=== PATIENT | female | born 1960 | race Caucasian/White ===

== ENCOUNTER 2017-03-10 15:36 | Emergency (ER) | payer OTHER ==
[2017-03-10] MEDS ORDERED: Ondansetron 4 MG/2 ML SDV IVPUSH ONE (15:46)
[2017-03-10] MEDS ORDERED: Sodium Chloride 0.9% 1,000 ML IV ONE (15:46)
[2017-03-10] MEDS ORDERED: Ketorolac 30 MG/ML SDV IVPUSH ONE (15:46)
--- NOTE | 2017-03-10 15:58 | EDM.PDOC ---
ED HPI GENERAL MEDICAL PROBLEM - General Chief Complaint: Back Pain or Injury Stated Complaint: FALL/BACK PAIN Time Seen by Provider: 03/10/17 15:40 Source of Information: Reports: Patient History Limitations: Reports: No Limitations - History of Present Illness INITIAL COMMENTS - FREE TEXT/NARRATIVE: History of present illness: 56-year-old female comes in this post mechanical fall patient indicates she now feels nauseated and weak indicates she struck her head against the vehicle but does not recall how she got up off the ground. She states they must have helped me.[] Review of systems: As per history of present illness and below otherwise all systems reviewed and negative. Past medical history: As per history of present illness and as reviewed below otherwise noncontributory. Surgical history: As per history of present illness and as reviewed below otherwise noncontributory. Social history: No reported history of drug or alcohol abuse. Family history: As per history of present illness and as reviewed below otherwise noncontributory. Physical exam: HEENT: Atraumatic, normocephalic, pupils reactive, negative for conjunctival pallor or scleral icterus, mucous membranes moist, throat clear, neck supple, nontender, trachea midline. Lungs: Clear to auscultation, breath sounds equal bilaterally, chest nontender. Heart: S1S2, regular, negative for clicks, rubs, or JVD. Abdomen: Soft, nondistended, nontender. Negative for masses or hepatosplenomegaly. Negative for costovertebral tenderness. Pelvis: Stable nontender. Genitourinary: Deferred. Rectal: Deferred. Extremities: Atraumatic, negative for cords or calf pain. Neurovascular unremarkable. Neuro: Awake, alert, oriented. Cranial nerves II through XII unremarkable. Cerebellum unremarkable. Motor and sensory unremarkable throughout. Exam nonfocal. Skin: Great toe of right foot right knee with small abrasion patient indicates these are not Painful. Patient indicates her primary concern is her lower back she heard it snap and feels it gave out. Denies incontinence of bladder or bowel. Diagnostics: [BC, CMP, lumbar x-ray, CT of head] Therapeutics: [IV fluid, Zofran, Toradol, IM Norflex] Impression: [Low back pain, mechanical fall] Plan: [Flex, meloxicam] Definitive disposition and diagnosis as appropriate pending reevaluation and review of above. Low Back Pain Score (Numeric/FACES): 7 - Related Data Allergies Allergy/AdvReac Type Severity Reaction Status Date / Time Sulfa (Sulfonamide Allergy Hives Verified 03/10/17 15:42 Antibiotics) Home Meds: Home Meds Meloxicam 7.5 mg PO BID #30 tablet 03/10/17 [Rx] Orphenadrine [Norflex] 100 mg PO BID #28 tab.er 03/10/17 [Rx] Zolpidem [Ambien] 5 mg PO BEDTIME 03/10/17 [History] traZODone 50 mg PO ONETIME 03/10/17 [History] Past Medical History - Past Health History Medical/Surgical History: Denies Medical/Surgical History Social & Family History - Family History Family Medical History: Noncontributory - Tobacco Use Smoking Status *Q: Never Smoker - Recreational Drug Use Recreational Drug Use: No ED ROS GENERAL - Review of Systems Review Of Systems: See Below (History of present illness) ED EXAM,LOWER BACK PAIN/INJURY - Physical Exam Exam: See Below (See history of present illness) Course - Vital Signs Last Recorded V/S: Last Vital Signs Temp 36.3 C 03/10/17 15:43 Pulse 57 L 03/10/17 15:43 Resp 18 03/10/17 15:43 BP 91/56 L 03/10/17 15:43 Pulse Ox 98 03/10/17 15:43 - Orders/Labs/Meds Orders: Active Orders 24 hr Category Date Time Status Head wo Cont [CT] Stat Exams 03/10/17 15:44 Taken Lumbar Spine 2 or 3V [CR] Stat Exams 03/10/17 15:52 Taken Orphenadrine [Norflex] Med 03/10/17 17:15 Ordered 60 mg IM Q12H Medication Orders Orphenadrine Citrate (Norflex) 60 mg IM Q12H GIULIANA Labs: Laboratory Tests 03/10/17 03/10/17 Range/Units 15:56 15:56 WBC 8.15 (4.0-11.0) K/uL RBC 4.30 (4.30-5.90) M/uL Hgb 13.4 (12.0-16.0) g/dL Hct 40.8 (36.0-46.0) % MCV 94.9 (80.0-98.0) fL MCH 31.2 (27.0-32.0) pg MCHC 32.8 (31.0-37.0) g/dL RDW Std Deviation 44.9 (28.0-62.0) fl RDW Coeff of Ava 13 (11.0-15.0) % Plt Count 190 (150-400) K/uL MPV 12.30 H (7.40-12.00) fL Neut % (Auto) 46.0 L (48.0-80.0) % Lymph % (Auto) 44.8 H (16.0-40.0) % Bee % (Auto) 8.0 (0.0-15.0) % Eos % (Auto) 1.0 (0.0-7.0) % Baso % (Auto) 0.2 (0.0-1.5) % Neut # (Auto) 3.8 (1.4-5.7) K/uL Lymph # (Auto) 3.7 H (0.6-2.4) K/uL Bee # (Auto) 0.7 (0.0-0.8) K/uL Eos # (Auto) 0.1 (0.0-0.7) K/uL Baso # (Auto) 0.0 (0.0-0.1) K/uL Nucleated RBC % 0.0 /100WBC Nucleated RBCs # 0 K/uL Sodium 142 (136-146) mmol/L Potassium 3.8 (3.5-5.1) mmol/L Chloride 108 (98-110) mmol/L Carbon Dioxide 25 (21-31) mmol/L BUN 14 (6.0-23.0) mg/dL Creatinine 0.8 (0.6-1.5) mg/dL Est Cr Clr Drug Dosing 81.08 mL/min Estimated GFR (MDRD) > 60.0 ml/min Glucose 134 H (60-110) mg/dL Calcium 9.1 (8.8-10.8) mg/dL Total Bilirubin 0.4 (0.1-1.5) mg/dL AST 24 (5-40) IU/L ALT 20 (8-54) IU/L Alkaline Phosphatase 70 (40-150) Total Protein 6.5 (6.0-8.0) g/dL Albumin 3.9 (3.5-5.0) g/dL Globulin 2.6 (2.0-3.5) g/dL Albumin/Globulin Ratio 1.5 (1.3-2.8) Meds: Medications Generic Name Dose Route Start Last Admin Trade Name Freq PRN Reason Stop Dose Admin Orphenadrine Citrate 60 mg 03/10/17 17:15 Norflex IM Q12H GIULIANA Discontinued Medications Generic Name Dose Route Start Last Admin Trade Name Freq PRN Reason Stop Dose Admin Sodium Chloride 1,000 mls @ 999 mls/hr 03/10/17 15:46 03/10/17 16:04 Normal Saline IV 03/10/17 16:46 999 mls/hr STAT ONE Administration Ketorolac Tromethamine 30 mg 03/10/17 15:46 03/10/17 16:05 Toradol IVPUSH 03/10/17 15:47 30 mg ONETIME ONE Administration Ondansetron HCl 8 mg 03/10/17 15:46 03/10/17 16:05 Zofran IVPUSH 03/10/17 15:47 8 mg ONETIME ONE Administration Departure - Departure Time of Disposition: 17:08 Disposition: Home, Self-Care 01 Condition: Good Clinical Impression: Accident due to mechanical fall without injury - Discharge Information Prescriptions: Meloxicam 7.5 mg PO BID #30 tablet Orphenadrine [Norflex] 100 mg PO BID #28 tab.er Instructions: Muscle Strain, [id number], Back Pain, Adult, [id number] Forms: ED Department Discharge Additional Instructions: The following information is given to patients seen in the emergency department who are being discharged to home. This information is to outline your options for follow-up care. We provide all patients seen in our emergency department with a follow-up referral. The need for follow-up, as well as the timing and circumstances, are variable depending upon the specifics of your emergency department visit. If you don't have a primary care physician on staff, we will provide you with a referral. We always advise you to contact your personal physician following an emergency department visit to inform them of the circumstance of the visit and for follow-up with them and/or the need for any referrals to a consulting specialist. The emergency department will also refer you to a specialist when appropriate. This referral assures that you have the opportunity for follow-up care with a specialist. All of these measure are taken in an effort to provide you with optimal care, which includes your follow-up. Under all circumstances we always encourage you to contact your private physician who remains a resource for coordinating your care. When calling for follow-up care, please make the office aware that this follow-up is from your recent emergency room visit. If for any reason you are refused follow-up, please contact the [facility] Emergency Department at and asked to speak to the emergency department charge nurse. Take medication as directed Follow-up with PCP in 1-2 days Return to ED as needed as discussed [facility] [address] [place] [address] - My Orders Last 24 Hours: My Active Orders 03/10/17 15:44 Head wo Cont [CT] Stat 03/10/17 15:52 Lumbar Spine 2 or 3V [CR] Stat 03/10/17 17:15 Orphenadrine [Norflex] 60 mg IM Q12H - Assessment/Plan Last 24 Hours: My Active Orders 03/10/17 15:44 Head wo Cont [CT] Stat 03/10/17 15:52 Lumbar Spine 2 or 3V [CR] Stat 03/10/17 17:15 Orphenadrine [Norflex] 60 mg IM Q12H
[2017-03-10 16:29] LABS: CHLORIDE,CL 108 mmol/L (98-110); SODIUM,NA 142 mmol/L (136-146)
[2017-03-10 17:57] VITALS: BP 112/65
--- NOTE | 2017-03-11 16:06 | CT ---
EXAM DATE: 03/10/17 PATIENT'S AGE: 56 Patient: PAULA DECKER Facility: [place], [place] Site . Site : 1960 Study: CT Head [id number]/6/2017 4:32:58 PM Ordering Physician: Doctor Peraza Final Report: INDICATION: Trauma. Fell and hit head on car. TECHNIQUE: CT head without i.v. contrast. COMPARISON: None FINDINGS: CSF spaces: Within normal limits for age. Brain parenchyma: The brain parenchyma is normal in appearance with preservation of the bhatia-white differentiation. No sign of mass, hemorrhage, or midline shift seen. Skull base and calvarium: The visualized paranasal sinuses are well aerated. The mastoid air cells are clear. The visualized orbits are grossly unremarkable. No skull fractures are seen. Likely scattered sebaceous cysts in the extracalvarial soft tissues. IMPRESSION: 1. No acute intracranial abnormality. Dictated by Jose Guadalupe Cristina MD @ 03/10/2017 4:40:21 PM Dictated by: Jose Guadalupe Cristina MD @ 03/10/2017 16:40:39 (Electronic Signature) Report Signed by Proxy. [facility] HOSPITALGraeme
--- NOTE | 2017-03-11 16:09 | CR ---
EXAM DATE: 03/10/17 PATIENT'S AGE: 56 Patient: PAULA DECKER Facility: [place], [place] Site Site : 1960 Study: XRay Spine Lumbar [id number]/6/2017 4:36:02 PM Ordering Physician: MEI Final Report: INDICATION : Status post fall. TECHNIQUE : Lumbar spine, three views. FINDINGS : No comparison study. There are 5 lumbar vertebral bodies. No compression fracture or malalignment. Mild degenerative disk disease in the lower lumbar spine at L4-L5 and L5-S1. Minimal dextroscoliosis, centered at L3, possible positional artifact. Upper sacrum grossly unremarkable. IMPRESSION : No acute lumbar spine compression fracture. Mild degenerative disk disease at L4 -L5 and L5-S1. Dictated by Jose Guadalupe Cristina MD @ 03/10/2017 4:44:04 PM Dictated by: Jose Guadalupe Cristina MD @ 03/10/2017 16:44:12 (Electronic Signature) Report Signed by Proxy. GLENN
== END 2017-03-10 17:35 | disposition home or self-care (01) ==
LOC: MW.ED 15:36
DX: S90.411A Abrasion, right great toe, initial encounter (principal); S80.211A Abrasion, right knee, initial encounter; Z88.2 Allergy status to sulfonamides; W19.XXXA Unspecified fall, initial encounter
CPT/HCPCS: 36415; 70450; 72100; 80053; 85025; 96361; 96372; 96374; 96375; 99285; J1885; J2360; J2405; J7040; 99284